=== PATIENT | male | born 1995 | race Caucasian/White ===

== ENCOUNTER → 2017-01-07 | Outpatient (CLI) | payer BC ==
--- NOTE | 2017-01-07 12:45 | KCIC ---
Lumbar spine three views Indication: Low back pain. Time of exam 12:07 p.m. Curvature of the lumbar spine is normal. There is minimal anterolisthesis of L5 on S1. There is questionable lucency in the region of the pars at the L5-S1 level, raising the question of a pars defect. All other levels are unremarkable. The disc spaces are well maintained. No fractures are seen. Impression: Minimal anterolisthesis L5 on S1 with questionable pars defect present, as described. Electronically signed by: Wes Blackwell MD (Jan 07, 2017 12:43:53)
== END | disposition home or self-care (01) ==
LOC: KCIC 11:46
PROVIDERS: ATTEND Nurse Practitioner Family
DX: M54.5 Low back pain (principal)
CPT/HCPCS: 72100